=== PATIENT | female | born 1990 | race Caucasian/White ===

== ENCOUNTER 2018-03-22 12:16 | Emergency (ER) | payer OTHER ==
[~2018-03-22] VITALS: Ht 162.6 cm; Wt 60.0 kg
[2018-03-22 12:20] VITALS: BP 107/69
== END 2018-03-22 14:23 | disposition left against medical advice (07) ==
LOC: EMS 12:17
DX: R10.9 Unspecified abdominal pain (principal); Z53.21 Procedure and treatment not carried out due to patient leaving prior to being seen by health care provider

== ENCOUNTER 2022-12-30 17:29 | Emergency (ER) | payer OTHER ==
[~2022-12-30] VITALS: Ht 165.1 cm; Wt 77.3 kg
[~2022-12-30 17:29] MED LIST: CLOT15CR23 TP; LEVO-72 PO
[2022-12-30 17:35] VITALS: BP 106/61; PULSE 71; RESP 15; TEMP 98.3
== END 2022-12-30 19:38 | disposition left against medical advice (07) ==
LOC: EMS 17:30
DX: O26.851 Spotting complicating pregnancy, first trimester (principal); Z3A.01 Less than 8 weeks gestation of pregnancy; Z53.21 Procedure and treatment not carried out due to patient leaving prior to being seen by health care provider
CPT/HCPCS: 99281; Z7502

== ENCOUNTER 2025-04-08 10:11 | Emergency (ER) | payer OTHER ==
[~2025-04-08] VITALS: Ht 163.8 cm; Wt 68.2 kg
[2025-04-08 10:17] VITALS: BP 109/78; PULSE 74; RESP 18; TEMP 97.9; O2SAT 98
[2025-04-08 10:42] LABS: PLATELET COUNT (AUTO) 191 K/uL (150-450); RED BLOOD CELL COUNT(AUTO) 4.59 MIL/uL (4.00-5.20); RED CELL DISTRIBUTION WIDTH 13.7 % (11.5-14.5); WHITE BLOOD COUNT (AUTO) 9.9 K/uL (4.5-11.0)
[2025-04-08 10:47] LABS: APPEARANCE,URINE CLEAR (CLEAR); GLUCOSE, URINE (UA) NEGATIVE (NEGATIVE); LEUKOCYTE ESTERASE ,URINE NEGATIVE (NEGATIVE); NITRATE,URINE NEGATIVE (NEGATIVE); OCCULT BLOOD,URINE NEGATIVE (NEGATIVE); SPECIFIC GRAVITIY, URINE 1.036 (1.003-1.030)
[2025-04-08 10:52] LABS: CALCIUM, TOTAL 8.7 mg/dL (8.8-10.5); CREATININE 0.86 mg/dL (0.60-1.30); GLOMERULAR FILTR. RATE CALC > 60 mL/min (>60); GLUCOSE,RANDOM 106 mg/dL (70-110); SODIUM SERUM 140 mmol/L (136-145); UREA NITROGEN, BLOOD 6 mg/dL (7-18)
[2025-04-08 11:03] LABS: ASPARTATE AMINOTRANSFERASE 12.0 U/L (15-37); HCG,QUANTITATIVE 2.0 mIU/mL (0-6); TOTAL PROTEIN, SERUM 6.9 g/dL (6.4-8.2)
== END 2025-04-08 12:17 | disposition home or self-care (01) ==
LOC: EMS 10:11
DX: O26.891 Other specified pregnancy related conditions, first trimester (principal); O20.9 Hemorrhage in early pregnancy, unspecified; R10.20 Pelvic and perineal pain unspecified side; Z98.890 Other specified postprocedural states; Z3A.01 Less than 8 weeks gestation of pregnancy
CPT/HCPCS: 76801; 80048; 80076; 81003; 84702; 85025; 99284

== ENCOUNTER 2025-04-27 19:17 | Emergency (ER) | payer OTHER ==
[~2025-04-27] VITALS: Ht 162.6 cm; Wt 6.8 kg
[2025-04-27 20:14] LABS: PLATELET COUNT (AUTO) 180 K/uL (150-450); RED BLOOD CELL COUNT(AUTO) 4.71 MIL/uL (4.00-5.20); RED CELL DISTRIBUTION WIDTH 14.0 % (11.5-14.5); WHITE BLOOD COUNT (AUTO) 10.8 K/uL (4.5-11.0)
[2025-04-27 20:20] LABS: CALCIUM, TOTAL 8.9 mg/dL (8.8-10.5); CREATININE 0.83 mg/dL (0.60-1.30); GLOMERULAR FILTR. RATE CALC > 60 mL/min (>60); GLUCOSE,RANDOM 89 mg/dL (70-110); SODIUM SERUM 140 mmol/L (136-145); UREA NITROGEN, BLOOD 9 mg/dL (7-18)
[2025-04-27 20:48] LABS: TOTAL PROTEIN, SERUM 7.2 g/dL (6.4-8.2)
[2025-04-27 20:50] LABS: ASPARTATE AMINOTRANSFERASE < 5 U/L (15-37)
[2025-04-27] MEDS: ACETAMINOPHEN 500 MG TABLET PO ONE (20:56)
[2025-04-27 21:29] VITALS: BP 100/69; PULSE 76; RESP 16; TEMP 98.8; O2SAT 100
[2025-04-27 21:30] LABS: COVID AG,FIA SOURCE NASAL SWAB
[2025-04-27] MEDS ORDERED: CLOTRIMAZOLE 1% 45 GM VAGINAL CREAM VG ONE (21:30)
[2025-04-27] MEDS ORDERED: METR500 PO (21:34)
[2025-04-27 21:39] LABS: APPEARANCE,URINE CLEAR (CLEAR); GLUCOSE, URINE (UA) NEGATIVE (NEGATIVE); LEUKOCYTE ESTERASE ,URINE TRACE (NEGATIVE); NITRATE,URINE NEGATIVE (NEGATIVE); OCCULT BLOOD,URINE NEGATIVE (NEGATIVE); SPECIFIC GRAVITIY, URINE 1.032 (1.003-1.030)
[2025-04-27 21:57] LABS: INFLUENZA TYPE A NEGATIVE FOR TYPE A (NEGATIVE); INFLUENZA TYPE B NEGATIVE FOR TYPE B (NEGATIVE); SARS-COV2 (COVID) ANTIGEN,FIA Negative (Negative)
[2025-04-27 22:07] LABS: YEAST,URINE None Seen /HPF (None Seen)
[2025-04-27 22:08] LABS: SQUAMOUS EPITHELIAL CELL,UR Few /LPF (None Seen)
== END 2025-04-28 01:02 | disposition home or self-care (01) ==
LOC: EMS 19:17
DX: B37.31 Acute candidiasis of vulva and vagina (principal); B96.89 Other specified bacterial agents as the cause of diseases classified elsewhere; F12.90 Cannabis use, unspecified, uncomplicated; R10.20 Pelvic and perineal pain unspecified side; Z98.890 Other specified postprocedural states; Z20.822 Contact with and (suspected) exposure to COVID-19
CPT/HCPCS: 76801; 80048; 80076; 81001; 84702; 84703; 85025; 86592; 87210; 87389; 87491; 87591; 87804; 99284

== ENCOUNTER 2025-05-03 20:34 | Emergency (ER) | payer OTHER ==
[~2025-05-03] VITALS: Ht 162.6 cm; Wt 70.5 kg
[~2025-05-03 20:34] MED LIST changes: -CLOT15CR23 TP; -LEVO-72 PO; +METR500 PO
[2025-05-03 20:36] VITALS: BP 109/70; PULSE 79; RESP 18; TEMP 98.6; O2SAT 100
== END 2025-05-03 22:03 | disposition left against medical advice (07) ==
LOC: EMS 20:34
DX: M54.2 Cervicalgia (principal)
CPT/HCPCS: 99281; Z7502